=== PATIENT | female | born 1995 | race Two or more races ===

== ENCOUNTER 2022-11-01 21:48 | Emergency (ER) | payer OTHER ==
[2022-11-01 21:58] VITALS: PULSE 80; BMI 36.4
[2022-11-01 23:34] LABS: BASO % 0.2 % (0-2.0); EOS % 3.6 % (0-4.5); HEMATOCRIT 26.9 % (32.4-45.2); HEMOGLOBIN 9.1 GM/dL (10.7-15.3); LYMPH % 32.3 % (8-40); MCH 29.6 pg (25.7-33.7); MCHC 33.7 g/dl (32.0-36.0); MEAN CELL VOLUME 87.9 fl (80-96); MEAN PLT VOLUME 7.2 fl (7.5-11.1); MONO % 12.4 % (3.8-10.2); NEUT % 51.5 % (42.8-82.8); PLATELET COUNT 367 10^3/uL (134-434); RBC 3.06 M/mm3 (3.60-5.2); RDW 14.6 % (11.6-15.6); WHITE BLOOD COUNT 6.2 K/mm3 (4.0-10.0)
[2022-11-01 23:37] LABS: EPI CELLS 21 /uL (0-25.1); HYALINE CASTS 0 /uL (0-3.1); URINE APPEARANCE CLEAR; URINE BACTERIA 40 /uL (0-1359); URINE BILIRUBIN NEGATIVE (NEGATIVE); URINE COLOR YELLOW; URINE GLUCOSE (UA) NEGATIVE (NEGATIVE); URINE KETONE NEGATIVE (NEGATIVE); URINE LEUK ESTERASE 3+ (NEGATIVE); URINE NITRITE NEGATIVE (NEGATIVE); URINE PROTEIN NEGATIVE (NEGATIVE); URINE RBC 101 /uL (0-23.9); URINE UROBILINOGEN 0.2 mg/dL (0.2-1.0); URINE WBC 215 /uL (0-25.8)
[2022-11-01 23:52] LABS: CHLORIDE 112 mmol/L (98-107); SODIUM 144 mmol/L (136-145)
[2022-11-01 23:54] LABS: ALBUMIN 2.3 g/dl (3.4-5.0)
[2022-11-01 23:55] LABS: ANION GAP 5 MMOL/L (8-16); BLOOD UREA NITROGEN 6.8 mg/dL (7-18); CO2 27 mmol/L (21-32); GLUCOSE,RANDOM 87 mg/dL (74-106)
[2022-11-01 23:58] LABS: CREATININE 0.6 mg/dL (0.55-1.3); SGOT/AST 23 U/L (15-37); SGPT/ALT 37 U/L (13-61)
[2022-11-02] LABS: BILIRUBIN,TOTAL < 0.1 mg/dL (0.2-1); TOT PROT 6.3 g/dl (6.4-8.2)
[2022-11-02 00:01] LABS: ALK PHOS 131 U/L (45-117)
[2022-11-02 02:13] VITALS: BP 130/80; RESP 18; TEMP 98.2
== END 2022-11-02 04:00 | disposition home or self-care (01) ==
LOC: JER 21:48
DX: R06.02 Shortness of breath (principal); I10 Essential (primary) hypertension; Z20.822 Contact with and (suspected) exposure to COVID-19
CPT/HCPCS: 0241U-QW; 36415; 71045-TC-FY; 71275-TC; 80053; 81003; 84484; 85025; 86850; 86900; 86901; 87086; 93005; 93010; 93308; 99285-25; Q9967